=== PATIENT | female | born 1945 | race African-American/Black ===

== ENCOUNTER 2023-05-17 17:48 | Emergency (ER) | payer MEDICARE, OTHER ==
[~2023-05-17] VITALS: Ht 160 cm; Wt 115.0 kg
[2023-05-17 18:50] LABS: ALANINE AMINOTRANSFERASE 20 IU/L (10-49); ASPARTATE AMINOTRANSFERASE 31 IU/L (<34); BILIRUBIN TOTAL 0.3 mg/dL (0.1-1.0); CALCIUM 9.3 mg/dL (8.7-10.4); CARBON DIOXIDE 24 mEq/L (21-32); CHLORIDE 107 mEq/L (98-107); CREATININE 0.8 mg/dL (0.6-1.0); GLUCOSE 108 mg/dL (70-105); POTASSIUM 3.7 mEq/L (3.5-5.1); PROTEIN TOTAL 7.3 g/dL (6.0-8.3); SODIUM 141 mEq/L (136-145); UREA NITROGEN BLOOD 15 mg/dL (9-23)
[2023-05-17 19:01] LABS: HEMATOCRIT. 39.7 % (36.0-48.0); HEMOGLOBIN. 13.3 g/dL (12.0-16.0); MEAN CORPUSCULAR HEMOGLOBIN 29.3 pg (28.0-32.0); MEAN CORPUSCULAR HGB CONC 33.5 g/dL (31.0-37.0); MEAN CORPUSCULAR VOLUME 87.5 fL (81.0-99.0); MEAN PLATELET VOLUME 9.9 fl (7.4-10.4); PLATELET 182 x1000/uL (130-400); RED BLOOD CELL COUNT 4.54 mill/uL (4.2-5.4); RED CELL DISTRIBUTION WIDTH 13.9 % (11.6-14.6); WHITE BLOOD COUNT 4.2 x1000/uL (4.5-11.0)
[2023-05-17 19:04] LABS: DIFFERENTIAL COMMENT 1
[2023-05-17 19:32] LABS: PLATELET ESTIMATE NORMAL
[2023-05-17 20:17] LABS: TROPONIN I HIGH SENSITIVITY 6 ng/L (3.0-34)
[2023-05-17 20:48] LABS: BG BASE EXCESS 2.9 mmol/L (-2.0-2.0); BG CARBOXYHEMOGLOBIN 0.3 % (0.5-1.5); BG DEOXYHEMOGLOBIN 3.7 % (0.0-5.0); BG FRACTION INSPIRED OXYGEN 21; BG HCO3 ACT 27.4 mmol/L (22.0-26.0); BG METHEMOGLOBIN 0.2 % (0.0-1.5); BG OXYGEN SATURATION 96.3 % (92.0-98.5); BG OXYHEMOGLOBIN 95.8 % (94.0-97.0); BG PH 7.433 (7.350-7.450); BG PO2 83.1 mmHg (75.0-100.0); BG SAMPLE SITE RIGHT BRACHIAL; BG TOTAL HEMOGLOBIN 13.7 g/dL (12.0-18.0); BG VENT MODE ROOM AIR
[2023-05-17] MEDS ORDERED: DEXAMETHASONE 4MG TABLET PO ONE (21:30)
[2023-05-17] MEDS ORDERED: DEXAMETHASONE 2MG TABLET PO NR (21:30)
[2023-05-17] MEDS ORDERED: DEXAMETHASONE 4MG TABLET PO NR (21:30)
[2023-05-17] MEDS ORDERED: DEXAMETHASONE 6MG TABLET PO NR (21:30)
[2023-05-17] MEDS ORDERED: IPRATROPIUM/ALBUTEROL 0.5-3(2.5)MG/3ML NEB HHN ONE (21:30)
[2023-05-17 22:39] VITALS: PULSE 88; RESP 20; O2SAT 96
[2023-05-17 23:20] VITALS: BP 160/75; PULSE 98; RESP 20; TEMP 98.8
== END 2023-05-17 23:44 | disposition home or self-care (01) ==
LOC: ER 17:48
DX: J45.901 Unspecified asthma with (acute) exacerbation (principal); I49.9 Cardiac arrhythmia, unspecified; Z98.890 Other specified postprocedural states
CPT/HCPCS: 80053; 83880; 85025; 84484; 36415; 71045; 94640; 82805; 82375; 93005; 99285; 36600; J8540; Z7610 ×3